=== PATIENT | male | born 1950 | race Caucasian/White ===

== ENCOUNTER 2017-11-18 19:52 | Emergency (ER) | payer MEDICARE, BC ==
[~2017-11-18] VITALS: Ht 182.9 cm; Wt 85.4 kg
[~2017-11-18 19:52] MED LIST: ACET-1008 PO; ESOM40CA GT; NORCO10T PO
[2017-11-18] MEDS ORDERED: ondansetron/PF 4mg/2ml inj IV ONE (22:30)
[2017-11-18] MEDS ORDERED: normal saline 1000ML IV soln IVB ONE (22:30)
[2017-11-18] MEDS ORDERED: HYDROmorphone 1 mg/ml syringe IV PRN (22:30)
[2017-11-18] MEDS ORDERED: ketorolac trometh. 30mg/ml inj. IV ONE ×2 (22:30→23:50)
[2017-11-18] MEDS ORDERED: HYDROmorphone inj. 0.5 MG/0.5 ML DISP.SYRIN ONE (22:43)
[2017-11-18 22:46] LABS: BASOPHILS % (AUTO) 0.5 % (0-1); EOSINOPHILS # (AUTO) 0.2 X10'3 (0-0.9); EOSINOPHILS % (AUTO) 3.9 % (0-6); HEMATOCRIT 42.1 % (42.0-52.0); HEMOGLOBIN 14.2 g/dl (14.0-17.9); LYMPHOCYTES # (AUTO) 0.6 X10'3 (1.1-4.8); LYMPHOCYTES % (AUTO) 13.4 % (21-51); MEAN CORPUSCULAR HEMOGLOBIN 27.8 PG (27.0-31.0); MEAN CORPUSCULAR HGB CONC 33.8 % (33.0-36.5); MEAN CORPUSCULAR VOLUME 82.4 FL (78-98); MEAN PLATELET VOLUME 7.9 FL (7.4-10.4); MONOCYTES # (AUTO) 0.7 X10'3 (0-0.9); NEUTROPHILS # (AUTO) 3.2 X10'3 (1.8-7.7); NEUTROPHILS % (AUTO) 68.2 % (42-75); PLATELET COUNT 216 X10'3 (140-440); RED BLOOD COUNT 5.11 X10'6 (4.70-6.10); WHITE BLOOD COUNT 4.7 X10'3 (4.5-11.0)
[2017-11-18 23:03] LABS: ALANINE AMINOTRANSFERASE 28 U/L (12-78); ALBUMIN 4.4 G/DL (3.4-5.0); ALBUMIN/GLOBULIN RATIO 1.5 (1.1-1.5); ALKALINE PHOSPHATASE 74 IU/L (46-116); ANION GAP 7 (8-16); ASPARTATE AMINO TRANSFERASE 26 U/L (10-37); BLOOD UREA NITROGEN 15 MG/DL (7-18); BUN/CREATININE RATIO 15.5 (5.4-32.0); CALCIUM 8.9 MG/DL (8.5-10.1); CHLORIDE 96 MMOL/L (99-107); CREATININE 0.97 MG/DL (0.60-1.10); GLUCOSE 96 MG/DL (70-104); LIPASE 109 U/L (73-393); POTASSIUM 4.2 MMOL/L (3.5-5.1); SODIUM 133 MMOL/L (135-145); TOTAL CARBON DIOXIDE 30.2 MMOL/L (24-32); TOTAL PROTEIN 7.4 G/DL (6.4-8.2); eGFR 77 ML/MIN
[2017-11-19 00:19] LABS: CLARITY,URINE CLEAR (Clear); COLOR,URINE STRAW (Yellow); GLUCOSE, URINE NEGATIVE (Neg); KETONES,URINE NEGATIVE (Neg); LEUKOCYTE ESTERASE ,URINE NEGATIVE (Neg); NITRITES, URINE NEGATIVE (Neg); OCCULT BLOOD,URINE NEGATIVE (Neg); PH,URINE 6.5 (4.8-8.0); PROTEIN,URINE NEGATIVE (Neg); UROBILINOGEN,URINE 0.2 E.U/dL (0.2-1.0)
[2017-11-19 00:20] LABS: UA COLLECTION TYPE URINAL
[2017-11-19] MEDS ORDERED: ONDA4TAB12 PO (00:42)
[2017-11-19 01:13] VITALS: BP 140/92
== END 2017-11-19 01:15 | disposition home or self-care (01) ==
LOC: ER 19:52
DX: R10.13 Epigastric pain (principal); R10.31 Right lower quadrant pain; R11.0 Nausea; R42 Dizziness and giddiness; M54.5 Low back pain; Z86.73 Personal history of transient ischemic attack (TIA), and cerebral infarction without residual deficits; Z85.9 Personal history of malignant neoplasm, unspecified; Z79.899 Other long term (current) drug therapy
CPT/HCPCS: 36415; 80053; 81003; 83690; 85025; 96361; 96374; 96375; 99285; J1170; J1885; J2405; J7030

== ENCOUNTER 2018-01-27 23:59 | Inpatient (IN) | payer MEDICARE, BC ==
[~2018-01-27] VITALS: Ht 180.3 cm; Wt 86.5 kg
[~2018-01-27 23:59] MED LIST changes: +ONDA4TAB12 PO
[2018-01-28] MEDS ORDERED: normal saline 1000ml 1,000 ML IV ONE (01:10)
[2018-01-28 01:21] LABS: BASOPHILS # (AUTO) 0.1 X10'3 (0-0.2); BASOPHILS % (AUTO) 0.7 % (0-1); EOSINOPHILS % (AUTO) 0.1 % (0-6); HEMATOCRIT 38.5 % (42.0-52.0); HEMOGLOBIN 12.6 g/dl (14.0-17.9); LYMPHOCYTES # (AUTO) 0.1 X10'3 (1.1-4.8); LYMPHOCYTES % (AUTO) 0.7 % (21-51); MEAN CORPUSCULAR HEMOGLOBIN 26.8 PG (27.0-31.0); MEAN CORPUSCULAR HGB CONC 32.7 % (33.0-36.5); MEAN PLATELET VOLUME 8.5 FL (7.4-10.4); MONOCYTES # (AUTO) 0.3 X10'3 (0-0.9); NEUTROPHILS # (AUTO) 15.4 X10'3 (1.8-7.7); NEUTROPHILS % (AUTO) 96.5 % (42-75); PLATELET COUNT 212 X10'3 (140-440); RED BLOOD COUNT 4.69 X10'6 (4.70-6.10); RED CELL DISTRIBUTION WIDTH 13.3 % (11.5-14.5); WHITE BLOOD COUNT 15.9 X10'3 (4.5-11.0)
[2018-01-28 01:29] LABS: INR 1.2 INR; PARTIAL THROMBOPLASTIN TIME 30 SECONDS (22-32); PROTHROMBIN TIME 12.2 SECONDS (9.0-12.0)
[2018-01-28 01:32] LABS: ALANINE AMINOTRANSFERASE 20 U/L (12-78); ALBUMIN 3.2 G/DL (3.4-5.0); ALKALINE PHOSPHATASE 73 IU/L (46-116); ANION GAP 11 (8-16); ASPARTATE AMINO TRANSFERASE 20 U/L (10-37); BILIRUBIN,TOTAL 0.8 MG/DL (0.1-1.0); BLOOD UREA NITROGEN 10 MG/DL (7-18); BUN/CREATININE RATIO 11.4 (5.4-32.0); CALCIUM 8.5 MG/DL (8.5-10.1); CHLORIDE 86 MMOL/L (99-107); CREATININE 0.88 MG/DL (0.60-1.10); GLUCOSE 117 MG/DL (70-104); POTASSIUM 3.9 MMOL/L (3.5-5.1); SODIUM 123 MMOL/L (135-145); TOTAL CARBON DIOXIDE 26.2 MMOL/L (24-32); TOTAL PROTEIN 6.4 G/DL (6.4-8.2); eGFR 87 ML/MIN
[2018-01-28 01:41] LABS: CLARITY,URINE Clear (Clear); COLOR,URINE Yellow (Yellow); GLUCOSE, URINE Negative (Neg); KETONES,URINE 15 mg/dl (Neg); LEUKOCYTE ESTERASE ,URINE Negative (Neg); NITRITES, URINE Negative (Neg); OCCULT BLOOD,URINE Negative (Neg); PH,URINE 6.5 (4.8-8.0); PROTEIN,URINE Negative (Neg)
[2018-01-28 01:42] LABS: UA COLLECTION TYPE URINAL
[2018-01-28] MEDS ORDERED: PREG100C PO (02:18)
[2018-01-28] MEDS ORDERED: morphine 4 MG/ML inj SYRINge IV ONE ×2 (02:20→03:40)
[2018-01-28] MEDS ORDERED: ondansetron/PF 4mg/2ml inj IV ONE (02:20)
[2018-01-28] MEDS ORDERED: albuterol 2.5 MG/3 ML nebule CONTNEB PRN (02:25)
[2018-01-28] MEDS ORDERED: levoFLOXACIN-Levaquin 500mg/D5 100 ML IV ONE (02:25)
[2018-01-28] MEDS ORDERED: piperacillin/tazo 3.375gm/50ml 50 ML IV SCH (04:00)
[2018-01-28] MEDS ORDERED: vancomycin/NS 1 GM ADD-VANTAGE 250 ML IV ONE (04:25)
[2018-01-28] MEDS ORDERED: morphine 4 MG/ML inj SYRINge IV PRN ×3 (04:25→08:10)
[2018-01-28] MEDS ORDERED: ondansetron/PF 4mg/2ml inj IV PRN (04:25)
[2018-01-28] MEDS ORDERED: magnesium hydroxide 30ml (MOM) UD suspension PO PRN (04:25)
[2018-01-28] MEDS ORDERED: acetaminophen 325mg tablet PO PRN ×2 (04:25)
[2018-01-28] MEDS ORDERED: mag hydrox/Alum hydrox/simeth 30ml oral suspension PO PRN (04:25)
[2018-01-28] MEDS: normal saline 1000ml 1,000 ML IV SCH ×2 (04:42→14:24)
[2018-01-28] MEDS ORDERED: pantoprazole 40mg Tablet.DR PO SCH (05:03)
[2018-01-28] MEDS: pantoprazole 40mg Tablet.DR PO SCH (05:18)
[2018-01-28] MEDS: pregabalin 25mg capsule PO SCH ×2 (05:19→21:03)
[2018-01-28] MEDS: piperacillin/tazo 3.375gm/50ml 50 ML IV SCH ×4 (06:00→23:31)
[2018-01-28] MEDS: HYDROcodone/acetaminophen 5mg/325mg tablet PO PRN ×2 (06:51→13:28)
[2018-01-28] MEDS ORDERED: docusate sod 100mg capsule PO SCH (08:00)
[2018-01-28] MEDS: enoxaparin 40mg/0.4ml syringe SUBCUT SCH (08:04)
[2018-01-28 08:09] LABS: BASOPHILS # (AUTO) 0.2 X10'3 (0-0.2); BASOPHILS % (AUTO) 1.1 % (0-1); EOSINOPHILS % (AUTO) 0 % (0-6); HEMATOCRIT 40.3 % (42.0-52.0); HEMOGLOBIN 13.5 g/dl (14.0-17.9); LYMPHOCYTES # (AUTO) 0.2 X10'3 (1.1-4.8); LYMPHOCYTES % (AUTO) 1.4 % (21-51); MEAN CORPUSCULAR HEMOGLOBIN 27.8 PG (27.0-31.0); MEAN CORPUSCULAR HGB CONC 33.4 % (33.0-36.5); MEAN CORPUSCULAR VOLUME 83.1 FL (78-98); MEAN PLATELET VOLUME 8.4 FL (7.4-10.4); MONOCYTES # (AUTO) 0.6 X10'3 (0-0.9); NEUTROPHILS % (AUTO) 93.5 % (42-75); PLATELET COUNT 205 X10'3 (140-440); RED BLOOD COUNT 4.85 X10'6 (4.70-6.10); RED CELL DISTRIBUTION WIDTH 13.1 % (11.5-14.5)
[2018-01-28 08:22] LABS: ALANINE AMINOTRANSFERASE 20 U/L (12-78); ALBUMIN 3.4 G/DL (3.4-5.0); ALBUMIN/GLOBULIN RATIO 0.9 (1.1-1.5); ALKALINE PHOSPHATASE 77 IU/L (46-116); ANION GAP 12 (8-16); ASPARTATE AMINO TRANSFERASE 25 U/L (10-37); BILIRUBIN,TOTAL 0.8 MG/DL (0.1-1.0); BLOOD UREA NITROGEN 9 MG/DL (7-18); BUN/CREATININE RATIO 9.2 (5.4-32.0); CALCIUM 8.7 MG/DL (8.5-10.1); CHLORIDE 90 MMOL/L (99-107); CREATININE 0.98 MG/DL (0.60-1.10); GLUCOSE 130 MG/DL (70-104); POTASSIUM 4.2 MMOL/L (3.5-5.1); SODIUM 126 MMOL/L (135-145); TOTAL CARBON DIOXIDE 24.4 MMOL/L (24-32); TOTAL PROTEIN 7.1 G/DL (6.4-8.2); TROPONIN I < 0.04 NG/ML (0.0-0.05); eGFR 77 ML/MIN
[2018-01-28 08:25] LABS: PLATELET ESTIMATE NORMAL; TOTAL CELLS COUNTED 100; TOXIC VACUOLATION FEW
[2018-01-28 08:46] LABS: ABG HCO3 22.4 mmol/L (22.0-26.0); ABG OXYGEN SATURATION 88.8 % (95-98); ABG PCO2 (T) 33.6 mmHg (35.0-48.0); ABG PH (T) 7.442 (7.350-7.450); ABG PO2 (T) 56.7 mmHg (83-108); ALLEN'S TEST Positive; FCOHb 0.7 % (0.5-1.5); FLOW 10 L/min; FMetHb 0.1 % (0.3-1.12); FO2Hb 88.1 % (94-100); TOTAL HEMOGLOBIN 13.4 G/dl (14.0-18.0)
[2018-01-28] MEDS ORDERED: iohexol 300mg/ml 100ml inj. ONE (09:07)
[2018-01-28] MEDS: MORPHINE 2MG in 2ml NS syringe IV PRN ×3 (10:27→19:24)
[2018-01-28 12:43] LABS: ALBUMIN 3.2 G/DL (3.4-5.0); ANION GAP 13 (8-16); BLOOD UREA NITROGEN 8 MG/DL (7-18); BUN/CREATININE RATIO 8.9 (5.4-32.0); CALCIUM 8.3 MG/DL (8.5-10.1); CHLORIDE 89 MMOL/L (99-107); GLUCOSE 123 MG/DL (70-104); SODIUM 125 MMOL/L (135-145); TOTAL CARBON DIOXIDE 22.6 MMOL/L (24-32); eGFR 84 ML/MIN
[2018-01-28] MEDS ORDERED: vancomycin inj 1,250 MG in normal saline 250ml IV soln 250 ML IV SCH (13:00)
[2018-01-28 15:06] LABS: ANION GAP 10 (8-16); BLOOD UREA NITROGEN 7 MG/DL (7-18); BUN/CREATININE RATIO 7.9 (5.4-32.0); CALCIUM 8.4 MG/DL (8.5-10.1); CHLORIDE 89 MMOL/L (99-107); CREATININE 0.89 MG/DL (0.60-1.10); GLUCOSE 135 MG/DL (70-104); SODIUM 125 MMOL/L (135-145); TOTAL CARBON DIOXIDE 25.7 MMOL/L (24-32); eGFR 86 ML/MIN
[2018-01-28] MEDS ORDERED: VANCOMYCIN LEVEL IV ONE (16:30)
[2018-01-28] MEDS: vancomycin inj 1,250 MG in normal saline 250ml IV soln 250 ML IV SCH (17:35)
[2018-01-28 18:11] LABS: ALANINE AMINOTRANSFERASE 18 U/L (12-78); ALBUMIN/GLOBULIN RATIO 0.8 (1.1-1.5); ALKALINE PHOSPHATASE 95 IU/L (46-116); ANION GAP 9 (8-16); ASPARTATE AMINO TRANSFERASE 19 U/L (10-37); BILIRUBIN,TOTAL 1.1 MG/DL (0.1-1.0); BLOOD UREA NITROGEN 8 MG/DL (7-18); BUN/CREATININE RATIO 8.2 (5.4-32.0); CALCIUM 8.7 MG/DL (8.5-10.1); CHLORIDE 91 MMOL/L (99-107); CREATININE 0.97 MG/DL (0.60-1.10); GLUCOSE 133 MG/DL (70-104); POTASSIUM 4.4 MMOL/L (3.5-5.1); SODIUM 129 MMOL/L (135-145); TOTAL CARBON DIOXIDE 29.1 MMOL/L (24-32); TOTAL PROTEIN 6.7 G/DL (6.4-8.2); eGFR 77 ML/MIN
[2018-01-28 19:00] VITALS: BP 153/88
[2018-01-28] MEDS: lactobacillus rhamnosus 10,000 MMU CELLS/CAPSULE PO SCH (21:03)
[2018-01-28] MEDS: docusate sodium 100mg/10ml UD cup PO SCH (21:03)
[2018-01-28 22:13] LABS: ALBUMIN 2.6 G/DL (3.4-5.0); ANION GAP 8 (8-16); BLOOD UREA NITROGEN 9 MG/DL (7-18); BUN/CREATININE RATIO 9.5 (5.4-32.0); CALCIUM 8.3 MG/DL (8.5-10.1); CHLORIDE 93 MMOL/L (99-107); CREATININE 0.95 MG/DL (0.60-1.10); GLUCOSE 115 MG/DL (70-104); SODIUM 128 MMOL/L (135-145); TOTAL CARBON DIOXIDE 26.9 MMOL/L (24-32); eGFR 79 ML/MIN
[2018-01-28 23:00] VITALS: BP 107/59
[2018-01-29] MEDS: MORPHINE 2MG in 2ml NS syringe IV PRN ×2 (01:37→08:43)
[2018-01-29] MEDS: normal saline 1000ml 1,000 ML IV SCH ×2 (01:55→13:02)
[2018-01-29 03:00] VITALS: BP 151/90
[2018-01-29] MEDS: HYDROcodone/acetaminophen 5mg/325mg tablet PO PRN ×3 (03:02→21:11)
[2018-01-29] MEDS: vancomycin inj 1,250 MG in normal saline 250ml IV soln 250 ML IV SCH ×2 (04:09→17:42)
[2018-01-29 06:00] VITALS: BP 142/69
[2018-01-29 06:14] LABS: BASOPHILS % (AUTO) 0.1 % (0-1); EOSINOPHILS % (AUTO) 0 % (0-6); HEMATOCRIT 35.8 % (42.0-52.0); HEMOGLOBIN 12.2 g/dl (14.0-17.9); LYMPHOCYTES # (AUTO) 0.3 X10'3 (1.1-4.8); LYMPHOCYTES % (AUTO) 3.2 % (21-51); MEAN CORPUSCULAR HEMOGLOBIN 28.2 PG (27.0-31.0); MEAN CORPUSCULAR HGB CONC 34.1 % (33.0-36.5); MEAN CORPUSCULAR VOLUME 82.5 FL (78-98); MONOCYTES # (AUTO) 0.7 X10'3 (0-0.9); MONOCYTES % (AUTO) 6.8 % (2-12); NEUTROPHILS # (AUTO) 9.4 X10'3 (1.8-7.7); NEUTROPHILS % (AUTO) 89.9 % (42-75); PLATELET COUNT 217 X10'3 (140-440); RED BLOOD COUNT 4.34 X10'6 (4.70-6.10); RED CELL DISTRIBUTION WIDTH 14.4 % (11.5-14.5); WHITE BLOOD COUNT 10.5 X10'3 (4.5-11.0)
[2018-01-29 06:35] LABS: ALBUMIN 2.9 G/DL (3.4-5.0); ANION GAP 8 (8-16); BLOOD UREA NITROGEN 10 MG/DL (7-18); BUN/CREATININE RATIO 10.5 (5.4-32.0); CALCIUM 8.6 MG/DL (8.5-10.1); CHLORIDE 94 MMOL/L (99-107); CREATININE 0.95 MG/DL (0.60-1.10); GLUCOSE 100 MG/DL (70-104); POTASSIUM 4.1 MMOL/L (3.5-5.1); SODIUM 131 MMOL/L (135-145); TOTAL CARBON DIOXIDE 29.5 MMOL/L (24-32); eGFR 79 ML/MIN
[2018-01-29] MEDS: piperacillin/tazo 3.375gm/50ml 50 ML IV SCH (06:44)
[2018-01-29] MEDS: enoxaparin 40mg/0.4ml syringe SUBCUT SCH (08:04)
[2018-01-29] MEDS: docusate sodium 100mg/10ml UD cup PO SCH ×2 (08:04→20:16)
[2018-01-29] MEDS: pantoprazole 40mg Tablet.DR PO SCH (08:04)
[2018-01-29] MEDS: lactobacillus rhamnosus 10,000 MMU CELLS/CAPSULE PO SCH ×2 (08:04→20:16)
[2018-01-29] MEDS: pregabalin 25mg capsule PO SCH ×2 (08:04→20:16)
[2018-01-29] MEDS ORDERED: morphine 4 MG/ML inj SYRINge IV PRN (09:21)
[2018-01-29 11:00] VITALS: BP 148/77
[2018-01-29] MEDS ORDERED: hydrALAZINE 20mg/ml inj. IV PRN (12:40)
[2018-01-29 15:00] VITALS: BP 176/99
[2018-01-29] MEDS ORDERED: VANCOMYCIN LEVEL IV ONE (16:30)
[2018-01-29] MEDS: cefepime inj. 1 GM in dextrose 5%-water 50ml 50 ML IV SCH (16:33)
[2018-01-29 20:00] VITALS: BP 133/76
[2018-01-29 23:00] VITALS: BP 90/52
[2018-01-30] VITALS (7 sets, daily range): BP systolic 111–169; BP diastolic 67–94
[2018-01-30] MEDS: cefepime inj. 1 GM in dextrose 5%-water 50ml 50 ML IV SCH ×2 (00:07→07:39)
[2018-01-30] MEDS: vancomycin inj 1,250 MG in normal saline 250ml IV soln 250 ML IV SCH (05:19)
[2018-01-30] MEDS: normal saline 1000ml 1,000 ML IV SCH ×2 (05:29→18:45)
[2018-01-30] MEDS: HYDROcodone/acetaminophen 5mg/325mg tablet PO PRN ×3 (05:33→19:57)
[2018-01-30 05:42] LABS: BASOPHILS % (AUTO) 0.3 % (0-1); EOSINOPHILS # (AUTO) 0.2 X10'3 (0-0.9); EOSINOPHILS % (AUTO) 2.1 % (0-6); LYMPHOCYTES # (AUTO) 0.3 X10'3 (1.1-4.8); LYMPHOCYTES % (AUTO) 3.3 % (21-51); MEAN CORPUSCULAR HEMOGLOBIN 28.3 PG (27.0-31.0); MEAN CORPUSCULAR HGB CONC 34.2 % (33.0-36.5); MEAN CORPUSCULAR VOLUME 82.9 FL (78-98); MEAN PLATELET VOLUME 7.5 FL (7.4-10.4); MONOCYTES # (AUTO) 0.7 X10'3 (0-0.9); MONOCYTES % (AUTO) 7.7 % (2-12); NEUTROPHILS # (AUTO) 8.2 X10'3 (1.8-7.7); NEUTROPHILS % (AUTO) 86.6 % (42-75); PLATELET COUNT 243 X10'3 (140-440); RED BLOOD COUNT 4.22 X10'6 (4.70-6.10); RED CELL DISTRIBUTION WIDTH 14.5 % (11.5-14.5); WHITE BLOOD COUNT 9.5 X10'3 (4.5-11.0)
[2018-01-30 05:57] LABS: ALBUMIN 2.6 G/DL (3.4-5.0); ANION GAP 8 (8-16); BLOOD UREA NITROGEN 11 MG/DL (7-18); BUN/CREATININE RATIO 12.9 (5.4-32.0); CALCIUM 8.3 MG/DL (8.5-10.1); CHLORIDE 95 MMOL/L (99-107); CREATININE 0.85 MG/DL (0.60-1.10); GLUCOSE 101 MG/DL (70-104); POTASSIUM 3.8 MMOL/L (3.5-5.1); PREALBUMIN 8.7 MG/DL (19-36); SODIUM 132 MMOL/L (135-145); TOTAL CARBON DIOXIDE 29.3 MMOL/L (24-32); eGFR 90 ML/MIN
[2018-01-30] MEDS: docusate sodium 100mg/10ml UD cup PO SCH ×2 (07:39→19:56)
[2018-01-30] MEDS: pregabalin 25mg capsule PO SCH ×2 (07:40→19:57)
[2018-01-30] MEDS: lactobacillus rhamnosus 10,000 MMU CELLS/CAPSULE PO SCH ×2 (07:40→19:57)
[2018-01-30] MEDS: pantoprazole 40mg Tablet.DR PO SCH (07:40)
[2018-01-30] MEDS: enoxaparin 40mg/0.4ml syringe SUBCUT SCH (07:41)
[2018-01-30] MEDS ORDERED: HYDR-3964 (09:44)
[2018-01-30] MEDS: levoFLOXACIN-Levaquin 750MG/D5 150 ML IV SCH (11:16)
[2018-01-30] MEDS ORDERED: vancomycin inj 1,250 MG in normal saline 250ml IV soln 250 ML IV SCH (13:00)
[2018-01-30] MEDS: metroNIDAZOLE-Flagyl 500mg/NS 100 ML IV SCH (15:46)
[2018-01-31] VITALS (9 sets, daily range): BP systolic 116–190; BP diastolic 66–110
[2018-01-31] MEDS: metroNIDAZOLE-Flagyl 500mg/NS 100 ML IV SCH ×4 (00:19→23:59)
[2018-01-31] MEDS: HYDROcodone/acetaminophen 5mg/325mg tablet PO PRN ×4 (01:21→15:35)
[2018-01-31] MEDS ORDERED: VANCOMYCIN LEVEL IV ONE (04:30)
[2018-01-31 05:25] LABS: BASOPHILS % (AUTO) 0.2 % (0-1); EOSINOPHILS # (AUTO) 0.1 X10'3 (0-0.9); EOSINOPHILS % (AUTO) 2.1 % (0-6); HEMATOCRIT 33.7 % (42.0-52.0); HEMOGLOBIN 11.4 g/dl (14.0-17.9); LYMPHOCYTES # (AUTO) 0.4 X10'3 (1.1-4.8); LYMPHOCYTES % (AUTO) 5.5 % (21-51); MEAN CORPUSCULAR HEMOGLOBIN 27.7 PG (27.0-31.0); MEAN CORPUSCULAR HGB CONC 33.8 % (33.0-36.5); MEAN CORPUSCULAR VOLUME 81.9 FL (78-98); MEAN PLATELET VOLUME 7.2 FL (7.4-10.4); MONOCYTES # (AUTO) 0.9 X10'3 (0-0.9); MONOCYTES % (AUTO) 12.9 % (2-12); NEUTROPHILS # (AUTO) 5.5 X10'3 (1.8-7.7); NEUTROPHILS % (AUTO) 79.3 % (42-75); PLATELET COUNT 249 X10'3 (140-440); RED BLOOD COUNT 4.11 X10'6 (4.70-6.10); RED CELL DISTRIBUTION WIDTH 14.3 % (11.5-14.5); WHITE BLOOD COUNT 6.9 X10'3 (4.5-11.0)
[2018-01-31 05:29] LABS: ALBUMIN 2.4 G/DL (3.4-5.0); ANION GAP 6 (8-16); BLOOD UREA NITROGEN 9 MG/DL (7-18); BUN/CREATININE RATIO 11.4 (5.4-32.0); CALCIUM 8.4 MG/DL (8.5-10.1); CHLORIDE 98 MMOL/L (99-107); CREATININE 0.79 MG/DL (0.60-1.10); GLUCOSE 105 MG/DL (70-104); POTASSIUM 3.5 MMOL/L (3.5-5.1); SODIUM 135 MMOL/L (135-145); TOTAL CARBON DIOXIDE 30.9 MMOL/L (24-32); eGFR > 90 ML/MIN
[2018-01-31] MEDS: pantoprazole 40mg Tablet.DR PO SCH (07:16)
[2018-01-31] MEDS: docusate sodium 100mg/10ml UD cup PO SCH ×2 (08:21→20:19)
[2018-01-31] MEDS: lactobacillus rhamnosus 10,000 MMU CELLS/CAPSULE PO SCH ×2 (08:21→20:19)
[2018-01-31] MEDS: pregabalin 25mg capsule PO SCH ×2 (08:21→20:18)
[2018-01-31] MEDS: enoxaparin 40mg/0.4ml syringe SUBCUT SCH (08:22)
[2018-01-31] MEDS: normal saline 1000ml 1,000 ML IV SCH ×2 (09:46→21:25)
[2018-01-31] MEDS: levoFLOXACIN-Levaquin 750MG/D5 150 ML IV SCH (09:46)
[2018-02-01 03:00] VITALS: BP 144/84
[2018-02-01 05:38] LABS: BASOPHILS % (AUTO) 0.1 % (0-1); EOSINOPHILS # (AUTO) 0.2 X10'3 (0-0.9); EOSINOPHILS % (AUTO) 2.1 % (0-6); HEMATOCRIT 36.7 % (42.0-52.0); HEMOGLOBIN 12.5 g/dl (14.0-17.9); LYMPHOCYTES # (AUTO) 0.4 X10'3 (1.1-4.8); LYMPHOCYTES % (AUTO) 5.2 % (21-51); MEAN CORPUSCULAR HEMOGLOBIN 28.3 PG (27.0-31.0); MEAN CORPUSCULAR VOLUME 83.1 FL (78-98); MEAN PLATELET VOLUME 7.1 FL (7.4-10.4); MONOCYTES # (AUTO) 1.1 X10'3 (0-0.9); MONOCYTES % (AUTO) 14.1 % (2-12); NEUTROPHILS % (AUTO) 78.5 % (42-75); PLATELET COUNT 270 X10'3 (140-440); RED BLOOD COUNT 4.41 X10'6 (4.70-6.10); RED CELL DISTRIBUTION WIDTH 14.4 % (11.5-14.5); WHITE BLOOD COUNT 7.7 X10'3 (4.5-11.0)
[2018-02-01 05:42] LABS: ALBUMIN 2.6 G/DL (3.4-5.0); ANION GAP 6 (8-16); BLOOD UREA NITROGEN 10 MG/DL (7-18); CALCIUM 8.8 MG/DL (8.5-10.1); CHLORIDE 96 MMOL/L (99-107); CREATININE 0.83 MG/DL (0.60-1.10); GLUCOSE 111 MG/DL (70-104); POTASSIUM 3.7 MMOL/L (3.5-5.1); SODIUM 134 MMOL/L (135-145); TOTAL CARBON DIOXIDE 31.9 MMOL/L (24-32); eGFR > 90 ML/MIN
[2018-02-01 06:41] VITALS: BP 156/94
[2018-02-01] MEDS: pantoprazole 40mg Tablet.DR PO SCH (07:10)
[2018-02-01] MEDS: docusate sodium 100mg/10ml UD cup PO SCH (07:10)
[2018-02-01] MEDS: metroNIDAZOLE-Flagyl 500mg/NS 100 ML IV SCH (07:10)
[2018-02-01] MEDS: enoxaparin 40mg/0.4ml syringe SUBCUT SCH (07:10)
[2018-02-01] MEDS: pregabalin 25mg capsule PO SCH (07:10)
[2018-02-01] MEDS: levoFLOXACIN-Levaquin 750MG/D5 150 ML IV SCH (07:10)
[2018-02-01] MEDS: lactobacillus rhamnosus 10,000 MMU CELLS/CAPSULE PO SCH (07:10)
[2018-02-01] MEDS: normal saline 1000ml 1,000 ML IV SCH (10:45)
[2018-02-01 11:44] VITALS: BP 143/79
== END 2018-02-01 12:00 | DRG 177 ==
LOC: ER 01-28 → ED HOLD 01-28 04:24 → PCU 3S 01-28 16:04
PROVIDERS: ADMIT Internal Medicine; ATTEND Internal Medicine
DX: J69.0 Pneumonitis due to inhalation of food and vomit (principal); J96.00 Acute respiratory failure, unspecified whether with hypoxia or hypercapnia; E87.1 Hypo-osmolality and hyponatremia; I10 Essential (primary) hypertension; Z86.73 Personal history of transient ischemic attack (TIA), and cerebral infarction without residual deficits; Z93.0 Tracheostomy status; Z90.49 Acquired absence of other specified parts of digestive tract; Z90.3 Acquired absence of stomach [part of]; Z85.89 Personal history of malignant neoplasm of other organs and systems
CPT/HCPCS: 36415; 36600; 71045; 74018; 80048; 80053; 80202; 81003; 82803; 83605; 84134; 84145; 84484; 85018; 85025; 85610; 85730; 87040; 87070; 93005; 94640; 94760; 96365; 96366; 96375; 97116; 97162; 97530; 99285; A6212; A6449; A7525; J0360; J0692; J1650; J1956; J2270; J2274; J2405; J2543; J3370; J3490; J7030; J7060; Q9967

== ENCOUNTER 2018-09-27 13:54 | Emergency (ER) | payer MEDICARE, BC ==
[~2018-09-27] VITALS: Ht 182.9 cm; Wt 85.5 kg
[~2018-09-27 13:54] MED LIST changes: +HYDR-3964; -NORCO10T PO; -ONDA4TAB12 PO; +PREG100C PO
[2018-09-27 14:18] VITALS: BP 127/70
[2018-09-28] MEDS ORDERED: OSEL6SUS4 GT (15:09)
[2018-09-28] MEDS ORDERED: AZIT200S47 GT (15:09)
== END 2018-09-27 18:02 | disposition left against medical advice (07) ==
LOC: ER 13:54
DX: R05 Cough (principal); Z53.21 Procedure and treatment not carried out due to patient leaving prior to being seen by health care provider

== ENCOUNTER 2018-09-28 11:42 | Emergency (ER) | payer MEDICARE, BC ==
[~2018-09-28] VITALS: Ht 180.3 cm; Wt 81.8 kg
[2018-09-28 13:10] LABS: BASOPHILS % (AUTO) 0.1 % (0-1); EOSINOPHILS # (AUTO) 0.1 X10'3 (0-0.9); EOSINOPHILS % (AUTO) 0.8 % (0-6); HEMATOCRIT 37.8 % (42.0-52.0); HEMOGLOBIN 12.5 g/dl (14.0-17.9); LYMPHOCYTES # (AUTO) 0.1 X10'3 (1.1-4.8); MEAN CORPUSCULAR HEMOGLOBIN 26.6 PG (27.0-31.0); MEAN CORPUSCULAR HGB CONC 33.1 % (33.0-36.5); MEAN CORPUSCULAR VOLUME 80.6 FL (78-98); MEAN PLATELET VOLUME 7.4 FL (7.4-10.4); MONOCYTES # (AUTO) 0.5 X10'3 (0-0.9); MONOCYTES % (AUTO) 4.8 % (2-12); NEUTROPHILS # (AUTO) 10.5 X10'3 (1.8-7.7); NEUTROPHILS % (AUTO) 93.3 % (42-75); PLATELET COUNT 257 X10'3 (140-440); RED BLOOD COUNT 4.69 X10'6 (4.70-6.10); RED CELL DISTRIBUTION WIDTH 16.3 % (11.5-14.5); WHITE BLOOD COUNT 11.3 X10'3 (4.5-11.0)
--- NOTE | 2018-09-28 13:25 | NUR ---
RT PAGED FOR SUCKTION [id number]
[2018-09-28 13:34] LABS: INR 1.3 INR; PARTIAL THROMBOPLASTIN TIME 30 SECONDS (22-32); PROTHROMBIN TIME 12.7 SECONDS (9.0-12.0)
[2018-09-28 13:37] LABS: ALANINE AMINOTRANSFERASE 22 U/L (12-78); ALBUMIN 3.7 G/DL (3.4-5.0); ALBUMIN/GLOBULIN RATIO 0.9 (1.1-1.5); ALKALINE PHOSPHATASE 83 IU/L (46-116); ANION GAP 12 (8-16); ASPARTATE AMINO TRANSFERASE 16 U/L (10-37); BILIRUBIN,TOTAL 0.5 MG/DL (0.1-1.0); BLOOD UREA NITROGEN 9 MG/DL (7-18); BUN/CREATININE RATIO 8.7 (5.4-32.0); CALCIUM 8.6 MG/DL (8.5-10.1); CHLORIDE 87 MMOL/L (99-107); CREATININE 1.04 MG/DL (0.60-1.10); GLUCOSE 109 MG/DL (70-104); POTASSIUM 4.4 MMOL/L (3.5-5.1); SODIUM 126 MMOL/L (135-145); TOTAL CARBON DIOXIDE 26.6 MMOL/L (24-32); TOTAL PROTEIN 7.6 G/DL (6.4-8.2); eGFR 71 ML/MIN
[2018-09-28] MEDS ORDERED: acetaminophen 325mg tablet PO STA (13:59)
[2018-09-28] MEDS ORDERED: normal saline 1000ML IV soln IV ONE (14:00)
[2018-09-28] MEDS ORDERED: acetaminophen 325mg/10.15ml oral unit dose solution GT ONE (14:20)
[2018-09-28] MEDS ORDERED: morphine 4 MG/ML inj SYRINge IV ONE (14:55)
[2018-09-28 14:56] VITALS: BP 144/72
[2018-09-28] MEDS ORDERED: AZIT200S47 GT (15:09)
[2018-09-28] MEDS ORDERED: OSEL6SUS4 GT (15:09)
== END 2018-09-28 15:30 | disposition home or self-care (01) ==
LOC: ER 11:42
DX: J96.00 Acute respiratory failure, unspecified whether with hypoxia or hypercapnia (principal); E87.1 Hypo-osmolality and hyponatremia; R50.9 Fever, unspecified; Z86.73 Personal history of transient ischemic attack (TIA), and cerebral infarction without residual deficits; Z79.2 Long term (current) use of antibiotics; Z79.899 Other long term (current) drug therapy
CPT/HCPCS: 36415; 71045; 80053; 83605; 85025; 85610; 85730; 87040; 93005; 96374; 99284; J2270; J7030

== ENCOUNTER 2020-07-06 14:53 | Outpatient (CLI) | payer MEDICARE, BC ==
[~2020-07-06 14:53] MED LIST changes: -ACET-1008 PO; -ESOM40CA GT; +ESOM40CA54 PO; -HYDR-3964; +HYDR-3964 PO; +LACT1CAP26 PO; -PREG100C PO; +PREG225C7 PO
[2020-07-06 15:21] LABS: CLARITY,URINE SLIGHTLY CLOUDY (Clear); COLOR,URINE YELLOW (Yellow); GLUCOSE, URINE NEGATIVE (Neg); KETONES,URINE NEGATIVE (Neg); LEUKOCYTE ESTERASE ,URINE LARGE (Neg); NITRITES, URINE POSITIVE (Neg); OCCULT BLOOD,URINE MODERATE (Neg); PROTEIN,URINE TRACE mg/dl (Neg); UROBILINOGEN,URINE >=8.0 E.U/dL (0.2-1.0)
[2020-07-06 15:28] LABS: UA COLLECTION TYPE NON-SPECIFIED
[2020-07-06 15:30] LABS: BACTERIA,URINE 4+ /HPF (Neg); SQUAMOUS EPITHELIAL CELL,UR FEW /LPF (FEW); WBC,URINE TNTC /HPF (0-4)
[2020-07-06 15:31] LABS: MUCUS STRANDS FEW /LPF (Neg)
== END 2020-07-06 23:59 | disposition home or self-care (01) ==
LOC: LAB SPEC 14:53
PROVIDERS: ATTEND Family Medicine
DX: N40.1 Benign prostatic hyperplasia with lower urinary tract symptoms (principal); N39.0 Urinary tract infection, site not specified
CPT/HCPCS: 81001